=== PATIENT | male | born 1935 | race Caucasian/White ===

== ENCOUNTER 2018-05-29 23:40 | Observation (INO) ==
--- NOTE | 2018-05-30 00:04 | ED ---
HPI General Chief complaint: Arrhythmia / Palpitations Stated complaint: cardiac complaint x 1 hr Time Seen by Provider: 05/29/18 23:44 Source: patient Mode of arrival: ambulatory Limitations: no limitations History of Present Illness HPI narrative: Patient is an 82-year-old male with history of a [employer] defibrillator, history of hypertension, hyperlipidemia, diabetes, "irregular heart rate", presents to the emergency room with complaints of chest pain. Patient reports that about 1 hour prior to arrival to the emergency room, he began to have a "pain" to his chest. Patient describes this chest pain is a "moderate pain", currently "pressure" to his chest. Patient reports that when he had these symptoms, he felt his heart rate go up and down. Patient reports that symptoms lasted for a good half hour and resolved on its own. Reports that nothing made the symptoms better or worse. Patient denies any shortness of breath or diaphoresis with the symptoms. Reports that he has had these symptoms in the past. Patient reports that he has history of coronary artery disease, reports that he has one cardiac stent as well as had a triple bypass in the past. Patient reports that he currently follows up with Dr. Paula in the cardiology office. He is a new patient to Dr. Paula, he has only seen him once. Patient reports that in the past when he has had these symptoms, no one really told him why he was having these symptoms. Patient is currently chest pain- free at this time. Denies any nausea or vomiting, patient with no other complaints. Related Data Home Medications Medication Instructions Recorded Confirmed Vitamin C 500 mg PO DAILY 05/29/18 05/30/18 amiodarone 100 mg PO DAILY 05/29/18 05/29/18 aspirin [Aspirin Low Dose] 81 mg PO DAILY 05/29/18 05/29/18 atorvastatin 20 mg PO QPM 05/29/18 05/29/18 clopidogrel 75 mg PO DAILY 05/29/18 05/29/18 docusate sodium [Doc-Q-Lace] 100 mg PO BID 05/29/18 05/29/18 duloxetine 60 mg PO DAILY 05/29/18 05/29/18 famotidine 20 mg PO DAILY 05/29/18 05/29/18 furosemide 20 mg PO DAILY 05/29/18 05/29/18 insulin glargine [Lantus U-100 05/29/18 Insulin] insulin lispro [Humalog U-100 1 sliding scale dose SUBCUT UD 05/29/18 05/29/18 Insulin] lactobacillus combination no.4 3,000 mmu cells PO DAILY 05/29/18 05/29/18 [Probiotic] losartan 25 mg PO DAILY 05/29/18 05/29/18 metoprolol tartrate 25 mg PO BID 05/29/18 05/30/18 multivitamin 1 tab PO DAILY 05/29/18 05/29/18 potassium chloride 10 meq PO DAILY 05/29/18 05/29/18 psyllium husk [Metamucil] 05/29/18 tamsulosin 0.4 mg PO DAILY 05/29/18 05/29/18 trazodone 50 mg PO DAILY 05/29/18 05/29/18 Allergies Allergy/AdvReac Type Severity Reaction Status Date / Time dopamine AdvReac Severe VOMITING Verified 05/29/18 23:52 Review of Systems ROS: all other systems reviewed are negative PMFSH History History Provided By: Patient Medical History Medical History History of atrial fibrillation (Acute) Hx of cardiac pacemaker (Acute) Hx of diabetes mellitus (Acute) Hx of myocardial infarction (Acute) Surgical History Surgical History History of back surgery (Acute) Hx of CABG (Acute) Hx of appendectomy (Acute) Hx of cardiac catheterization (Acute) Hx of cholecystectomy (Acute) Hx of heart artery stent (Acute) Social History Social History Substance History: No History of Abuse Smoking Status: Never smoker How Often Do You Have a Drink Containing Alcohol: 2 to 4 times a month Recent Travel in [facility] within the Last 8 Weeks: No Recent Out of Country Travel within the Last 8 Weeks: No Exam Narrative Exam Narrative: GENERAL: NAD SKIN: Focused skin assessment warm/dry. HEAD: Atraumatic. Normocephalic. EYES: Pupils equal and round. No scleral icterus. No injection or drainage. ENT: No nasal bleeding or discharge. Mucous membranes pink and moist. NECK: Trachea midline. No JVD. CARDIOVASCULAR: Irregular rate and rhythm. No murmur appreciated. RESPIRATORY: No accessory muscle use. Clear to auscultation. Breath sounds equal bilaterally. GASTROINTESTINAL: Abdomen soft, non-tender, nondistended. Hepatic and splenic margins not palpable. MUSCULOSKELETAL: No obvious deformities. No clubbing. No cyanosis. No edema. NEUROLOGICAL: Awake and alert. No obvious cranial nerve deficits. Motor grossly within normal limits. Normal speech. PSYCHIATRIC: Appropriate mood and affect; insight and judgment normal. Course Initial Documented Vital Signs Temperature 98.4 F 05/29/18 23:58 Pulse Rate 75 05/29/18 23:58 Respiratory Rate 18 05/29/18 23:58 Blood Pressure 127/67 05/29/18 23:58 Pulse Oximetry 98 05/29/18 23:58 Last Documented Vital Signs Temperature 98.4 F 05/29/18 23:58 Pulse Rate 75 05/30/18 00:05 Respiratory Rate 18 05/29/18 23:58 Blood Pressure 127/67 05/29/18 23:58 Pulse Oximetry 98 05/30/18 00:05 Medical Decision Making MDM Narrative Medical decision making narrative: During the course of the patients emergency department visit, the patients history, examination, and differential diagnosis were reviewed with the patient. The patient was placed on a rn cardiac rehab with oximetry and frequent blood pressure monitoring. The patient had an IV access obtained and blood work sent for analysis. The patient was initially provided aspirin 162mg. Patient is currently chest pain-free at this time. I did order cardiac enzymes as well as x-ray of the chest. Patient will be observed on a rn cardiac rehab. The patients laboratory studies were reviewed and remarkable for WBC 5.9, hemoglobin 12.1, hematocrit 36.1, platelets 202 Sodium 133, potassium 3.7, chloride 96, BUN 11, creatinine 0.90, glucose 139 Total CK 401, CK-MB 4.7, troponin less than 0.02 Radiology studies were reviewed and remarkable for X-ray chest with no acute disease Patient is currently chest pain-free at this time. Plan to observe the chest pain unit for serial troponins. case reviewed with Carmen Danielle, accepts pt to service Medical Screen Exam Complete: Yes Emergency Medical Condition: Yes Differential Diagnosis Differential Diagnosis: ACS, arrhythmia, electrolyte abnormality, A. fib with RVR Medical Records Medical records reviewed: Yes I reviewed the patient's medical records. Lab Data Lab results reviewed: Yes I reviewed the patient's lab results. Result diagrams: 05/29/18 23:59 05/29/18 23:59 Lab Results 05/29/18 05/29/18 05/29/18 Range/Units 23:59 23:59 23:59 CBC w Diff Auto diff final WBC 5.9 (4.0-11.0) th/mm3 RBC 3.60 L (4.50-5.90) mil/mm3 Hgb 12.1 L (13.0-17.0) gm/dL Hct 36.1 L (39.0-51.0) % MCV 100.3 H (80.0-100.0) fL MCH 33.7 (27.0-34.0) pg MCHC 33.6 (32.0-36.0) % RDW 12.7 (11.6-17.2) % Plt Count 202 (150-450) th/mm3 MPV 7.9 (7.0-11.0) fL Neut % (Auto) 46.3 (16.0-70.0) % Lymph % (Auto) 39.9 (9.0-44.0) % [place] % (Auto) 10.8 H (0.0-8.0) % Eos % (Auto) 2.5 (0.0-4.0) % Baso % (Auto) 0.5 (0.0-2.0) % Neut # (Auto) 2.8 (1.8-7.7) th/mm3 Lymph # (Auto) 2.4 (1.0-4.8) th/mm3 [place] # (Auto) 0.6 (0.0-0.9) th/mm3 Eos # (Auto) 0.1 (0.0-0.4) th/mm3 Baso # (Auto) 0.0 (0.0-0.2) th/mm3 WBC Differential . Differential Comment . PT 10.0 (9.8-11.6) sec INR 1.0 Ratio APTT 25.3 (23.4-31.7) sec Sodium 133 L (136-145) meq/L Potassium 3.7 (3.5-5.1) meq/L Chloride 96 L (98-107) meq/L Carbon Dioxide 31.7 (21.0-32.0) meq/L Anion Gap 5 (5-15) meq/L BUN 11 (7-18) mg/dL Creatinine 0.90 (0.60-1.30) mg/dL Estimated GFR 81 L (>89) mL/min Random Glucose 139 H (74-106) mg/dL Calcium 8.6 (8.5-10.1) mg/dL Total Bilirubin 0.3 (0.2-1.0) mg/dL AST 31 (15-37) U/L ALT 35 (12-78) U/L Alkaline Phosphatase 58 (45-117) U/L Total Creatine Kinase 401 H (39-308) U/L CK-MB (CK-2) 4.7 H (0.5-3.6) ng/mL CK-MB (CK-2) % 1.2 (0.0-4.0) % Troponin I Less than 0.02 L (0.02-0.05) ng/mL Total Protein 6.8 (6.4-8.2) g/dL Albumin 3.7 (3.4-5.0) g/dL Imaging Data Attestation: I personally reviewed and interpreted this imaging study as follows : Radiologist's impression: Chest X-Ray 05/30/18 00:01 CONCLUSION: No acute disease ECG Data EKG Prior to Arrival: No Attestation: I personally reviewed and interpreted this ECG as follows: Prior ECG tracings: not available for review Interpretation: EKG at 2358 shows A. fib at 71 bpm, QT/QTc 499/522, patient with a right bundle branch block Discharge Plan Discharge Disposition Patient Disposition: ED Admit(ED Internal Use Only) Discharge Condition Condition: Fair Discharge Order Discharge Orders: ED Use Only Admit Order (Routine); Ordered 05/30/18 Ordered By: Marcie Rosen Discharge Details Diagnosis: Chest pain Physicians Team ED Provider: Marcie Rosen Primary Care Provider: Ernst Velazquez Rxs /Orders / Referrals /Forms Prescriptions: No Action potassium chloride 10 mEq Capsule, Extended Release 10 meq PO DAILY RF: 0 atorvastatin 20 mg Tablet 20 mg PO QPM RF: 0 insulin glargine [Lantus U-100 Insulin] 100 unit/mL Solution RF: 0 trazodone 50 mg Tablet 50 mg PO DAILY RF: 0 amiodarone 200 mg Tablet 100 mg PO DAILY RF: 0 clopidogrel 75 mg Tablet 75 mg PO DAILY RF: 0 famotidine 20 mg Tablet 20 mg PO DAILY RF: 0 tamsulosin 0.4 mg Capsule 0.4 mg PO DAILY RF: 0 docusate sodium [Doc-Q-Lace] 100 mg Capsule 100 mg PO BID RF: 0 furosemide 20 mg Tablet 20 mg PO DAILY RF: 0 insulin lispro [Humalog U-100 Insulin] 100 unit/mL Solution 1 sliding scale dose SUBCUT UD RF: 0 metoprolol tartrate 25 mg Tablet 25 mg PO BID RF: 0 duloxetine 60 mg Capsule,Delayed Release(Dr/Ec) 60 mg PO DAILY RF: 0 multivitamin Tablet 1 tab PO DAILY RF: 0 aspirin [Aspirin Low Dose] 81 mg Tablet,Delayed Release (Dr/Ec) 81 mg PO DAILY RF: 0 losartan 25 mg Tablet 25 mg PO DAILY RF: 0 lactobacillus combination no.4 [Probiotic] 3 billion cell Capsule 3,000 mmu cells PO DAILY RF: 0 psyllium husk [Metamucil] 0.4 gram Capsule RF: 0 Vitamin C 500 mg PO DAILY RF: 0 Status ED Status: Pending Admission
[2018-05-30 00:23] LABS: Baso % (Auto) 0.5 % (0.0-2.0); Eos # (Auto) 0.1 th/mm3 (0.0-0.4); Eos % (Auto) 2.5 % (0.0-4.0); Hematocrit 36.1 % (39.0-51.0); Hemoglobin 12.1 gm/dL (13.0-17.0); Lymph # (Auto) 2.4 th/mm3 (1.0-4.8); Lymph % (Auto) 39.9 % (9.0-44.0); Mean Corpuscular HGB Conc 33.6 % (32.0-36.0); Mean Corpuscular Hemoglobin 33.7 pg (27.0-34.0); Mean Corpuscular Volume 100.3 fL (80.0-100.0); Mean Platelet Volume 7.9 fL (7.0-11.0); Mono # (Auto) 0.6 th/mm3 (0.0-0.9); Mono % (Auto) 10.8 % (0.0-8.0); Neut # (Auto) 2.8 th/mm3 (1.8-7.7); Neut % (Auto) 46.3 % (16.0-70.0); Platelet Count 202 th/mm3 (150-450); Red Cell Distribution Width 12.7 % (11.6-17.2); White Blood Count 5.9 th/mm3 (4.0-11.0)
[2018-05-30 00:30] LABS: Chloride 96 meq/L (98-107); Potassium 3.7 meq/L (3.5-5.1); Sodium 133 meq/L (136-145)
[2018-05-30 00:33] LABS: Calcium 8.6 mg/dL (8.5-10.1)
[2018-05-30 00:34] LABS: Albumin 3.7 g/dL (3.4-5.0); Anion Gap 5 meq/L (5-15); Blood Urea Nitrogen 11 mg/dL (7-18); Carbon Dioxide 31.7 meq/L (21.0-32.0); Glucose,Random 139 mg/dL (74-106)
[2018-05-30 00:36] LABS: Activated Partial Thrombo Time 25.3 sec (23.4-31.7)
[2018-05-30 00:37] LABS: Alanine Aminotransferase 35 U/L (12-78); Aspartate Aminotransferase 31 U/L (15-37); Glomerular Filtration Rate 81 mL/min (>89)
[2018-05-30 00:39] LABS: Total Protein 6.8 g/dL (6.4-8.2)
[2018-05-30 00:40] LABS: Alkaline Phosphatase 58 U/L (45-117); Creatine Kinase 401 U/L (39-308)
--- NOTE | 2018-05-30 00:44 | XR ---
EXAM DATE: 05/30/2018 12:09 AM EST AGE/SEX: 82 years / Male INDICATIONS: Chest pain, irregular heart rate. CLINICAL DATA: This is the patient's initial encounter. Patient reports that signs and symptoms have been present for 1 day and indicates a pain score of 10/10. MEDICAL/SURGICAL HISTORY: Cardiovascular disease. CABG. Defibrillator. COMPARISON: No prior exams available for comparison. FINDINGS: A pacing implement is present with control pack over left upper chest. No evidence of focal infiltrat e or pleural effusion. Cardiac contours are satisfactory for technique and projection. CONCLUSION: No acute disease Electronically signed by: Brandon Olivarez MD Board Certified Radiologist 05/30/2018 12:42 AM EST
[2018-05-30 00:52] LABS: CKMB Percent 1.2 % (0.0-4.0); Creatine Kinase MB 4.7 ng/mL (0.5-3.6)
[2018-05-30] MEDS ORDERED: Acetaminophen 325 MG Tablet PO PRN (01:41)
[2018-05-30 04:59] LABS: CKMB Percent 1.1 % (0.0-4.0); Creatine Kinase MB 3.8 ng/mL (0.5-3.6)
[2018-05-30] MEDS ORDERED: Dextrose 50% in Water 50 ML Vial IV.PUSH PRN (07:47)
--- NOTE | 2018-05-30 07:50 | P.HPIM ---
History of Present Illness Primary Care Physician: Ernst Velazquez MD Chief Complaint: Irregular heartbeat and chest pain History of Present Illness: 82-year-old male with a quite extensive cardiac history with hypertension, hyperlipidemia, coronary artery disease, history of myocardial infarction, who presented to the hospital for evaluation of irregular heartbeat and chest pain. Patient indicates that he was in his normal state of health until approximately 7 PM last evening when he was sitting down watching TV and started noticing his heart was beating irregularly and was skipping beats. Shortly after that he started developing pain in the left side of his chest without any radiation to the neck, back, shoulder, arm. He did have some associated lightheadedness but denied any nausea, vomiting, diaphoresis, shortness of breath, dyspnea. Patient indicates that the pain was a 2/10 on a pain scale that would get worse and then start to go away but never went away completely. Because of the patient's extensive cardiac history and previous myocardial infarction he was concerned about the chest discomfort so he came to the emergency department for evaluation. patient had workup done in emergency department and initial cardiac enzymes were unremarkable for any acute cardiac injury. EKG indicating sinus rhythm with first-degree AV block and supraventricular premature atrial complexes, right bundle branch block, anterior inferior myocardial infarction. It was recommended by the ER physician that the patient be observed in the hospital for further evaluation. Patient just recently moved to the area for the last couple months. He has seen [employer] Dr. Paula. He denies any recent cardiac workup to include cardiac catheterization or stress testing. Currently the patient is asymptomatic. Review of Systems Review of Systems: all other systems reviewed are negative Cardiovascular: Reports chest pain and Reports irregular heart rhythm [facility] Medical History Medical History Back pain (Acute) Coronary artery disease (Acute) History of atrial fibrillation (Acute) Hx of diabetes mellitus (Acute) Hx of myocardial infarction (Acute) Hyperlipidemia (Acute) Hypertension (Acute) Surgical History Surgical History History of back surgery (Acute) History of cataract surgery (Acute) Hx of CABG (Acute) Hx of appendectomy (Acute) Hx of cardiac catheterization (Acute) Hx of cardiac pacemaker (Acute) Hx of cholecystectomy (Acute) Hx of heart artery stent (Acute) Social History Social History Substance History: No History of Abuse Second Hand Smoke Exposure: No Smoking Status: Former smoker Number of Pack-Years (if former smoker): 15 Smoking End Date: Quit smoking in 1982 How Often Do You Have a Drink Containing Alcohol: 2 to 4 times a month Recent Travel in [facility] within the Last 8 Weeks: No Recent Out of Country Travel within the Last 8 Weeks: No Immunization History Tetanus Immunization: Unsure Medications and Allergies Allergies Allergy/AdvReac Type Severity Reaction Status Date / Time dopamine AdvReac Severe VOMITING Verified 05/29/18 23:52 Home Medications Medication Instructions Recorded Confirmed Type Vitamin C 500 mg PO DAILY 05/29/18 05/30/18 History amiodarone 100 mg PO DAILY 05/29/18 05/29/18 History aspirin [Aspirin Low Dose] 81 mg PO DAILY 05/29/18 05/29/18 History atorvastatin 20 mg PO QPM 05/29/18 05/29/18 History clopidogrel 75 mg PO DAILY 05/29/18 05/29/18 History docusate sodium [Doc-Q-Lace] 100 mg PO BID 05/29/18 05/29/18 History duloxetine 60 mg PO DAILY 05/29/18 05/29/18 History famotidine 20 mg PO DAILY 05/29/18 05/29/18 History furosemide 20 mg PO DAILY 05/29/18 05/29/18 History insulin glargine [Lantus U-100 05/29/18 History Insulin] insulin lispro [Humalog U-100 1 sliding scale dose SUBCUT UD 05/29/18 05/29/18 History Insulin] lactobacillus combination no.4 3,000 mmu cells PO DAILY 05/29/18 05/29/18 History [Probiotic] losartan 25 mg PO DAILY 05/29/18 05/29/18 History metoprolol tartrate 25 mg PO BID 05/29/18 05/30/18 History multivitamin 1 tab PO DAILY 05/29/18 05/29/18 History potassium chloride 10 meq PO DAILY 05/29/18 05/29/18 History psyllium husk [Metamucil] 05/29/18 History tamsulosin 0.4 mg PO DAILY 05/29/18 05/29/18 History trazodone 50 mg PO DAILY 05/29/18 05/29/18 History Active Medications: Active Medications Acetaminophen (Tylenol) 650 mg PO Q4H PRN PRN Reason: Temp > 100.4 Amiodarone HCl (Cordarone) 100 mg PO DAILY [facility] Aspirin (Ecotrin) 81 mg PO DAILY [facility] Atorvastatin Calcium (Lipitor) 20 mg PO QPM [facility] Clopidogrel Bisulfate (Plavix) 75 mg PO DAILY [facility] Famotidine (Pepcid) 20 mg PO DAILY [facility] Furosemide (Lasix) 20 mg PO DAILY [facility] Losartan Potassium (Cozaar) 25 mg PO DAILY [facility] Metoprolol Tartrate (Lopressor) 25 mg PO BID [facility] Ondansetron HCl (Zofran Inj) 4 mg IV.PUSH Q6H PRN PRN Reason: NAUSEA OR VOMITING Sodium Chloride (Ns Flush) 2 ml IV.FLUSH UNSCH PRN PRN Reason: FLUSH AFTER USING IV ACCESS Sodium Chloride (Ns Flush) 2 ml IV.FLUSH BID SAMMY Sodium Chloride (Ns Flush) 2 ml IV.FLUSH PRN PRN PRN Reason: FLUSH AFTER USING IV ACCESS Tamsulosin HCl (Flomax) 0.4 mg PO DAILY [facility] Trazodone HCl (Desyrel) 50 mg PO DAILY [facility] Physical Exam Vital signs: Vital Signs 05/29/18 23:58 05/30/18 00:05 05/30/18 01:28 Temperature 98.4 F Pulse Rate 75 75 68 Respiratory Rate 18 18 Blood Pressure 127/67 138/70 Pulse Oximetry 98 98 97 05/30/18 03:40 05/30/18 04:00 Temperature 97.6 F Pulse Rate 64 Respiratory Rate 16 Blood Pressure 148/75 H Pulse Oximetry 97 95 Intake & Output 05/29/18 05/30/18 05/30/18 18:59 06:59 18:59 Weight 88.7 kg Other: Weight On Admission 83.461 kg Narrative: GENERAL: Well-developed, well-nourished, in no acute distress. alert and orientated HEENT: Head is normocephalic without any lesions or masses noted. Facial features are symmetric. Eyes: Pupils equal round reactive to light. Extraocular muscles are intact. Conjunctivae were clear. Oropharyngeal: Pharynx without any erythema edema. Tongue is midline without deviation. Buccal mucosa is moist without any masses or lesions NECK: Supple without any masses. Trachea midline no deviation. No JVD, no bruits are appreciated CARDIAC: Irregular rhythm, irregular rate. S1/S2 are heard. No murmurs gallops or rubs. AICD noted in the left anterior chest LUNGS: Clear to auscultation bilaterally. No wheeze, rhonchi or rales. No use of accessory muscles on inspiration or expiration. ABDOMEN: Soft, nontender. Nondistended. Bowel sounds heard in all 4 quadrants. No organomegaly or masses. Negative rebound, negative guarding EXTREMITIES: No edema, pulses are equal bilaterally. No cyanosis or clubbing NEUROLOGY: Mood and affect appear appropriate. Cranial nerves II through XII grossly intact. Muscle strength 5/5 in upper and lower extremities bilaterally. Deep tendon reflexes are 2+ in upper and lower extremities bilaterally. Results Labs CBC & Chem 7: 05/29/18 23:59 05/29/18 23:59 Imaging Impressions Chest X-Ray 05/30/18 00:01 CONCLUSION: No acute disease Caprini VTE Risk Assessment Caprini VTE Risk Assessment: Moderate/High Risk (score >= 2) Caprini Risk Assessment Model: Point Value = 1 Point Value = 2 Point Value = 3 Point Value = 5 Age 41-60 Minor surgery BMI > 25 kg/m2 Swollen legs Varicose veins or History of unexplained or recurrent spontaneous Oral contraceptives or hormone replacement Sepsis (< 1 month) Serious lung disease, including pneumonia (< 1 month) Abnormal pulmonary function Acute myocardial infarction Congestive heart failure (< 1 month) History of inflammatory bowel disease Medical patient at bed rest Age 61-74 Arthroscopic surgery Major open surgery (> 45 min) Laparoscopic surgery (> 45 min) Malignancy Confined to bed (> 72 hours) Immobilizing plaster cast Central venous access Age >= 75 History of VTE Family history of VTE Factor V Leiden Prothrombin [id number] Lupus anticoagulant Anticardiolipin antibodies Elevated serum homocysteine Heparin-induced thrombocytopenia Other congenital or acquired thrombophilia Stroke (< 1 month) Elective arthroplasty Hip, pelvis, or leg fracture Acute spinal cord injury (< 1 month) Prophylaxis Regimen: Total Risk Factor Score Risk Level Prophylaxis Regimen 0-1 Low Early ambulation 2 Moderate Order ONE of the following: *Sequential Compression Device (SCD) *Heparin 5000 units SQ BID 3-4 Higher Order ONE of the following medications: *Heparin 5000 units SQ TID *Enoxaparin/Lovenox 40 mg SQ daily (WT < 150 kg, CrCl > 30 mL/min) *Enoxaparin/Lovenox 30 mg SQ daily (WT < 150 kg, CrCl > 10-29 mL/min) *Enoxaparin/Lovenox 30 mg SQ BID (WT < 150 kg, CrCl > 30 mL/min) AND/OR *Sequential Compression Device (SCD) 5 or more Highest Order ONE of the following medications: *Heparin 5000 units SQ TID (Preferred with Epidurals) *Enoxaparin/Lovenox 40 mg SQ daily (WT < 150 kg, CrCl > 30 mL/min) *Enoxaparin/Lovenox 30 mg SQ daily (WT < 150 kg, CrCl > 10-29 mL/min) *Enoxaparin/Lovenox 30 mg SQ BID (WT < 150 kg, CrCl > 30 mL/min) AND *Sequential Compression Device (SCD) Assessment and Plan Plan Chest pain, irregular heart rate Patient with very high risk factors for cardiac event to include age, male, hypertension, hyper lipidemia, coronary disease, history of myocardial infarction, diabetes, history of tobacco use, family history of heart disease Patient thus far has been ruled out for acute coronary event with serial cardiac enzymes that have remained negative Serial EKGs were reviewed by myself which does show multiple arrhythmias to include possible atrial fibrillation, right bundle branch block, first-degree AV block. Also shown signs of anterior and inferior infarcts. Upon reviewing them together does not appear to be any acute changes since she has been in the hospital Main stay here is to consult patient's [employer] for further recommendations. The patient has paroxysmal atrial fibrillation, he has a chads/vas score of at least 5 with a 7.2% risk of stroke per year. Patient will require full anticoagulation, mate [employer] vessel indicates patient has had cardiac catheterization with stenting within the last year patient is on aspirin and Plavix. Continue patient's home medications to include aspirin, beta-joi, ARB, statin Continue to monitor telemetry Patient underwent myocardial perfusion study which shows a large fixed defect with no redistribution seen during stress. High risk with fraction 25% Discussed with [employer] who indicated patient should undergo myocardial perfusion study and if it is negative for any reversible ischemia that the patient can be discharged with outpatient follow-up with medical management. Hypertension, hyper lipidemia, coronary artery disease, history myocardial infarction Continue home medications Obtain lipid panel Diabetes Accu-Cheks with sliding scale insulin DVT prevention Sequential compression devices Discussed Condition With: Patient, nursing staff, Dr. Rosenbaum, Dr. Candler Discharge Planning: Discharge home in stable condition Activity: Ad earline. Diet: Healthy heart diet Medication per medication reconciliation Follow-up with primary medical doctor in 1 week H&P: Quality VTE Deep Vein Thrombosis/Pulmonary Embolism Present on Admission: No
[2018-05-30 07:54] LABS: Creatine Kinase 313 U/L (39-308)
[2018-05-30 08:06] LABS: CKMB Percent 1.1 % (0.0-4.0); Creatine Kinase MB 3.5 ng/mL (0.5-3.6)
[2018-05-30] MEDS: Insulin NovoLOG Aspart Correctional Sugar Inj SQ SCH ×3 (08:50→16:45)
[2018-05-30] MEDS ORDERED: Duloxetine 60 MG DR Capsule PO SCH (09:00)
[2018-05-30] MEDS ORDERED: Amiodarone 200 MG Tablet PO SCH (09:00)
[2018-05-30] MEDS ORDERED: Famotidine 20 MG Tablet PO SCH (09:00)
[2018-05-30] MEDS ORDERED: Metoprolol Tartrate 25 MG Tablet PO SCH (09:00)
[2018-05-30] MEDS ORDERED: Furosemide 20 MG Tablet PO SCH (09:00)
[2018-05-30 10:21] LABS: Chol/HDL Ratio 2.37 Ratio; HDL Cholesterol 55.6 mg/dL (40.0-60.0)
--- NOTE | 2018-05-30 11:45 | ECG ---
Date Performed: 05/29/2018 Time Performed: 23:58:30 PTAGE: 82 years EKG: Sinus rhythm WITH FIRST DEGREE AV BLOCK WITH FREQUENT SUPRAVENTRICULAR PREMATURE COMPLEXES RIGHT BUNDLE BRANCH BL OCK POSSIBLE ANTERIOR MYOCARDIAL INFARCTION INFERIOR MYOCARDIAL INFARCTION ABNORMAL ECG Compared to PREVIOUS TRACING , low chest lead voltage is new, the other changes are similiar. PREVIOU S TRACIN03/07/2006 10.51 DOCTOR: Deng Pittman Interpretating Date/Time 05/30/2018 11:45:19
--- NOTE | 2018-05-30 11:47 | ECG ---
Date Performed: 05/30/2018 Time Performed: 03:45:37 PTAGE: 82 years EKG: ATRIAL FIBRILLATION RIGHT BUNDLE BRANCH BLOCK POSSIBLE ANTERIOR MYOCARDIAL INFARCTION INFER IOR MYOCARDIAL INFARCTION ABNORMAL ECG Compared to PREVIOUS TRACING , the underlying atrial rhythm is difficult to discern. Suspect possible atrial fibrillation but it could be sinus with extremely low amplitude T-wave. PREVIOUS TRACIN 23.58 DOCTOR: Deng Pittman Interpretating Date/Time 05/30/2018 11:46:42
--- NOTE | 2018-05-30 11:48 | ECG ---
Date Performed: 05/30/2018 Time Performed: 06:24:08 PTAGE: 82 years EKG: Sinus rhythm WITH FIRST DEGREE AV BLOCK RIGHT BUNDLE BRANCH BLOCK INFERIOR MYOCARDIAL INFARCTION ABNORMAL ECG Com pared to PREVIOUS TRACING , the ekg is similiar to the old tracing. PREVIOUS TRACIN05/30/2018 0 3.45 DOCTOR: Deng Pittman Interpretating Date/Time 05/30/2018 11:47:02
[2018-05-30] MEDS ORDERED: Regadenoson Inj 0.4 MG/5 ML Syringe IV.PUSH ONE (12:43)
--- NOTE | 2018-05-30 14:43 | MB ---
cc: Dixie Mejia MD DATE: 05/30/2018 REASON FOR CONSULTATION: Chest pain. HISTORY OF PRESENT ILLNESS: This patient is an 82-year-old patient of my partner, Dr. Paula. He does have a history of an ischemic cardiomyopathy with Medtr[employer] ICD and ventricular tachycardia. He has a history of prior CABG and underwent a left heart catheterization in 04/2017 that showed an EF of 50% with patent grafts that included a RAMON to LAD, SVG to OM1 and SVG to the PDA, which was stented in 04/2016 at an outside facility. The patient presented to [place] after a 15-minute episode of chest pain. He did take 3 nitroglycerin without any relief. He did also report an irregular heart rate. He has been very active at home with bike riding and using a stridor machine. He has not had any discomfort with that. PAST MEDICAL HISTORY: Paroxysmal atrial fibrillation, Medtronic ICD, and history of an ischemic cardiomyopathy with an EF of 30-35% that again by a catheterization last year showed 50%, hypertension, hyperlipidemia, diabetes, obesity, PAD, ventricular tachycardia. PAST SURGICAL HISTORY: Brain surgery, cataract surgery, cholecystectomy and tonsillectomy. OUTPATIENT MEDICATIONS: 1. Amiodarone 100 mg a day. 2. Aspirin. 3. Atorvastatin. 4. Docusate. 5. Duloxetine. 6. Famotidine. 7. Lasix 10 mg daily. 8. Insulin. 9. Metoprolol 25 mg b.i.d. 10. Plavix 75 mg a day. 11. Potassium. 12. Flomax. 13. Trazodone. 14. Vitamin C. SOCIAL HISTORY: The patient is and is a former smoker. He does have 1-2 drinks a day. ALLERGIES: DOPAMINE AND ISOSORBIDE. FAMILY HISTORY: Positive for cancer. Negative for CAD. REVIEW OF SYSTEMS: Except as mentioned in the HPI, all 12 systems are negative. PHYSICAL EXAMINATION: VITAL SIGNS: Stable. GENERAL: He is a well-appearing man, who is in no apparent distress. NECK: Free from JVD. LUNGS: Bilaterally clear to auscultation. CARDIOVASCULAR: He has a normal S1 and S2. There was a 2/6 systolic murmur. No rubs or gallops were appreciated. ABDOMEN: Soft. EXTREMITIES: Free from edema. DIAGNOSTIC DATA: EKG shows normal sinus rhythm with a right bundle branch block. This is old when compared to his prior EKGs. Laboratory values significant for troponins of less than 0.02. IMPRESSION: 1. Chest pain. The patient certainly has a significant cardiac history with a prior CABG and stenting last year. I would go ahead and check a nuclear stress test at this point. If the study is negative for ischemia, it would be reasonable to continue medical management. 2. Paroxysmal atrial fibrillation. The patient does have a history of the same. He is on 2 antiplatelets and thus at this point, I would not add full anticoagulation with triple therapy given his advanced age and possibility of falls. I do agree with considering a hand box coverer once his medical laboratory technician stops his Plavix. 3. Ventricular tachycardia. Per the outside records, the patient is on the amiodarone for his ventricular tachycardia. Thus, I would continue this as well. 4. Disposition. As above. If the study is not ischemic, it is reasonable for him to be discharged home. MD BUSTER Elias/chance , 01:45 PM , 01:56 PM
--- NOTE | 2018-05-30 16:46 | NM ---
EXAM DATE: 05/30/2018 4:30 PM EST AGE/SEX: 82 years / Male INDICATIONS:Right Bundle Branch Block. Angina Mid chest pain for one day. CLINICAL DATA: This is the patient's initial encounter. Patient reports that signs and symptoms have been present for 1 day and indicates a pain score of 3/10. MEDICAL/SURGICAL HISTORY: Myocardial infarction. Diabetes mellitus type II. Hypertension. CAB G. Pacemaker. Cholecystectomy. COMPARISON: No prior exams available for comparison. No external comparison. DOSE: 8.8 mCi Tc 99m Myoview at rest 26.2 mCi [id number] at stress 0.4 mg Lexiscan STRESS SYMPTOMS: None. EJECTION FRACTION: 25 % TECHNIQUE: The patient underwent pharmacologic stress with infusion of prescribed dose. Continuous ECG tracing was monitored during stress. Gated SPECT imaging was performed after stress and conventi onal SPECT imaging was performed at rest. The examination was performed on a SPECT/CT scanner, both attenuation and non-corrected datasets were reviewed. FINDINGS: Distribution: The maximum perfused segment at stress is in the septal wall. Perfusion Study: There is a large perfusion defect involving the entire lateral wall from apex to b ase with greater than 70% decrease of uptake when compared to the disc perfusion wall. The defect is similar in size on the resting injections scan. The sum stress score is 24. Gated Study: There is very poor wall motion. Questionable dyskinesia involving the inferior wall. T he ejection fraction is calculated at 25%. RISK CATEGORY: High (>3% Annual Mortality Rate) CONCLUSION: 1. Large fixed perfusion defect involving the entire lateral and inferolateral wall with no signific ant redistribution and with possible dyskinesia of the inferior wall characteristic of transmural libby cardial infarction. 2. No evidence of stress-induced ischemia. 3. Significantly depressed ejection fraction calculated at 25%. Electronically signed by: Jose Murcia MD Board Certified Radiologist 05/30/2018 4:45 PM EST
[2018-05-30 17:06] VITALS: BP 152/78; RESP 15; TEMP 97; O2SAT 98
[2018-05-30 17:16] VITALS: PULSE 71
--- NOTE | 2018-05-30 17:42 | TR ---
Date Performed: 05/30/2018 Time Performed: 15:16:18 DOCTOR: Dixie Mejia DRUG LIST: CLINICAL HISTORY: CHEST PAIN REASON FOR TEST: RBBB REASON FOR ENDING: OBSERVATION: CONCLUSION: Lexiscan stress test was performed under standard four minute protocol. Radionuclid e was injected one minute prior to ending the test. No electrocardiographic abormalities were present to suggest ischemia. Nuclear imaging and interpretation are pending. COMMENTS: Lexiscan stress test was performed under standard four minute protocol. Radionuclide was injected one minute prior to ending the test. No electrocardiographic abormalities were present t o suggest ischemia. Nuclear imaging and interpretation are pending.
[2018-05-30] MEDS ORDERED: traZODone 50 MG Tablet PO SCH (21:00)
== END 2018-05-30 19:10 | disposition home or self-care (01) ==
LOC: PHED 23:40 → PHEDA 23:40 → PH3 05-30 02:33
PROVIDERS: ADMIT Hospitalist; ATTEND Hospitalist
DX: Z82.49 Family history of ischemic heart disease and other diseases of the circulatory system; Z79.899 Other long term (current) drug therapy; Z79.82 Long term (current) use of aspirin; Z87.891 Personal history of nicotine dependence; I25.5 Ischemic cardiomyopathy; E78.5 Hyperlipidemia, unspecified; Z79.02 Long term (current) use of antithrombotics/antiplatelets; Z95.1 Presence of aortocoronary bypass graft; I48.0 Paroxysmal atrial fibrillation; R07.9 Chest pain, unspecified; Z90.49 Acquired absence of other specified parts of digestive tract; I44.0 Atrioventricular block, first degree; I47.2 Ventricular tachycardia; I25.10 Atherosclerotic heart disease of native coronary artery without angina pectoris; Z95.5 Presence of coronary angioplasty implant and graft; I10 Essential (primary) hypertension; I25.2 Old myocardial infarction; Z95.0 Presence of cardiac pacemaker; E11.9 Type 2 diabetes mellitus without complications; Z79.4 Long term (current) use of insulin
CPT/HCPCS: 71010; 71045; 78452; 80053; 80061; 82550; 82552; 82948; 82962; 83520; 83880; 84484; 85025; 85610; 85730; 93005; 93017; 99285; A9502; G0378; J2785; Q9969